=== PATIENT | male | born 1995 | race Caucasian/White ===

== ENCOUNTER 2024-04-21 17:38 | Emergency (ER) | payer OTHER, SELFPAY ==
[2024-04-21 17:43] VITALS: BP 141/104
--- NOTE | 2024-04-21 18:33 | ED.GENMED ---
History of Present Illness
General
Chief Complaint: Abdominal Pain
Source: patient
Exam Limitations: none
Time Seen by Provider: 04/21/24 18:14
History of Present Illness
History of Present Illness:
This is a 28 year old male that comes in with c/o left sided abd pain. States that this started on Thursday and has continued to get worse. States that this comes in waves. States that last night the pain was so bad that he was unable to sleep.
States that it seems to get worse after eating. Patient went to and was sent to the ER. States that the pain sometimes shoots up into his shoulder. States that it is a stabbing pain with deep breathing. States that he also had 3 stools today
which was unusual for him. States that he is occasionally nauseated. Denies any fever, chills, chest pain, SOB, vomiting, diarrhea, headache, dizziness, urinary burning.
Past History
Past History
ED Past Medical History: Psychiatric (Bipolar) and Other (Renal calculus)
ED Past Surgical History: None
Social History
Tobacco: Vaping
Alcohol: Occasional
Personal:
Living: with family
Review of Systems
Review of Systems
All Other Systems: ROS reviewed and negative except as documented in HPI and ROS
Constitutional: Reports no symptoms; Denies fever or chills
EENT: Reports no symptoms
Respiratory: Reports no symptoms; Denies cough or trouble breathing
Cardiac: Reports no symptoms; Denies chest pain
ABD/GI: Reports abdominal pain and nausea (occasional); Denies vomiting or diarrhea
: Reports no symptoms; Denies dysuria, frequency or urgency
Musculoskeletal: Reports no symptoms
Skin: Reports no symptoms
Neurological: Reports no symptoms; Denies dizzy or headache
Psychiatric: Reports no symptoms
Phy Exam
General Physical Exam
General Presentation: well appearing and no apparent distress
General age: appears stated age
General Skin: warm and dry
General Habitus: normal
General Mental: alert
General Hydration: dry mucous membranes
ENT Exam
ENT Exam: TM's normal, pharynx normal and neck supple
Eye Exam
Eye Exam: EOMI
Cardiovascular Exam
Cardiovascular Exam: regular rate/rhythm, no edema, no murmur and normal peripheral pulses
Pulmonary Exam
Pulmonary Exam: lungs clear, no respiratory distress, no rales, chest non tender, no crackles, no rhonchi, no wheezing and no cough
Gastrointestinal Exam
Gastrointestinal Exam: normal bowel sounds, soft, no organomegaly, no pulsatile mass, non distended and tender (Left sided abd tenderness with palpation)
Musculoskeletal Exam
Musculoskeletal Exam: full ROM and no edema
Skin Exam
Skin Exam: normal color, warm/dry, no rash and no petechia
Psychiatric Exam
Psychiatric Exam: normal mood/affect
Course
Orders/Labs/Results
Orders:
Orders
04/21/24 18:32
CT Abd/Pel (IV only)-DH only Urgent
Comment:
Reason For Exam: left sided abd pain
IV Insert/Care/Rem.- Treatment PRN
0.9% Sodium Chloride 1000 ml [Nss] 1,000 ml IV BOLUS
04/21/24 18:33
Ketorolac [Toradol] 30 mg IV NOW STA
04/21/24 18:55
Complete Blood Count/With Diff Urgent
Comprehensive Metabolic Panel Urgent
Lipase Urgent
Urinalysis Reflex To Culture Urgent
Date Specimen was Collected: 04/21/24
Time Specimen was Collected: 18:46
Abnormal Lab Results
04/21/24
18:55
ALT 66 H U/L
(0-50)
04/21/24 18:55
04/21/24 18:55
Vital Signs
Initial and Last Documented VS:
Initial Vital Signs
Temp Pulse Resp BP Pulse Ox
99.0 F 100 16 141/104 96
08/15/24 17:43 04/21/24 17:43 04/21/24 17:43 04/21/24 17:43 04/21/24 17:43
Last Documented Vital Signs
Temp Pulse Resp BP Pulse Ox
99.0 F 90 16 136/91 98
04/21/24 17:43 04/21/24 20:30 04/21/24 20:30 04/21/24 20:30 04/21/24 20:32
MDM/Problems Addressed
Differential Diagnosis Includes:
Renal calculus, Diverticulitis.
MDM/Problems Addressed:
This is a 28 year old male that comes in with c/o left sided abd pain. States that this started on Thursday and has continued to get worse.
Will check labs. CT scan. IV fluids and pain medication.
back into see patient. Patient is up and dressed. Explained to patient that his Blood work shows that his ALT is slightly elevated, otherwise his labs are normal. Lipase is normal and urine negative for infection. Explained that there is some bony
degenerative changes. This may be causing his abd discomfort. Will have patient follow up with the family doctor. Return with any concerns.
Chronic conditions affecting care:
NA
Acute Exacerbation and/or Progression of Chronic Illness:
NA
*Radiology
Radiology exam reviewed: radiology read reviewed (CT No evidence for acute abnormality of the abdomen or pelvis. Bony degenerative changes. )
*Pulse Oximetry
Patient hypoxic: no
*EKG
Interpreted by ED Provider?: NA
Rate: EKG- N/A
*Door Closer Mechanic Interpretation
Rate: Door Closer Mechanic- N/A
*Critical Care Note
Total Time (30-74mins, 75-104mins- exclusive of procedures): Not Applicable
ED Attending Note
-
Portions of this chart may have been created with voice recognition software.� Occasional wrong word or��sound alike� substitutions may have occurred due to the inherent limitations of voice recognition software.
Discharge Plan
Departure
Patient Disposition: Home (Routine Discharge)
Date of Disposition: 04/21/24
Time of Disposition: 22:54
Patient with high blood pressure during this ER visit?: Yes
Condition: Good
Covid-19: Not Applicable
Discharge Problem:
Left sided abdominal pain
Instructions: Abdominal Pain, BLOOD PRESSURE
Referrals:
Maryam Lomeli EPIC MANAGER [Family Provider] - Call in 1-3 days for appt
Activity Restrictions/Additional Instructions:
As discussed, your blood work shows that your ALT is slightly elevated, otherwise labs are normal. Your urine was negative for infection of blood. You CT is negative for acute disease but there are degenerative bony changes. The nerves form the back
wrap around to the abdomen and this may be causing your pain. You may use Tylenol or Ibuprofen for pain. Follow up with the family doctor. Please increase your water intake to 8-8oz glasses daily. IF YOU HAVE INCREASED OR CHANGING PAIN, OR YOU
HAVE ANY OTHER CONCERNS PLEASE RETURN TO THE EMERGENCY ROOM.
Interventions
Interventions:
*General Assessment Last Done: 04/21/24 20:17
*Neglect/Abuse Screening Last Done: 04/21/24 20:17
ED- Fall Risk Assessment Last Done: 04/21/24 20:17
*ED COVID-19 Vaccine History Last Done: 04/21/24 20:17
TK-Fywbss-Nvwpdsewnj Assessment Last Done: 04/21/24 20:17
Discharge Date and Time
Print Language: IVORIAN
[2024-04-21 18:47] VITALS: BMI 39.6
[2024-04-21] MEDS: NSS 1000 IV (18:58)
[2024-04-21] MEDS: TORADOL 30 MG IV (18:59)
[2024-04-21 19:01] LABS: Urine Albumin Negative (Neg - Trace); Urine Bilirubin Negative (Negative); Urine Character Clear (Clear); Urine Color Yellow; Urine Glucose Negative (Negative); Urine Ketone Negative (Negative); Urine Leukocyte Negative (Negative); Urine Nitrite Negative (Negative); Urine Occult Blood Negative (Negative); Urine Specific Gravity 1.025 (<1.030); Urine Urobilinogen Negative (Neg - 1+)
[2024-04-21 19:05] LABS: % Basophils 0.7 % (0-2); % Eosinophils 1.5 % (0-6); % Immature Granulocytes 0.4 % (0-0.5); % Monocytes 6.2 % (1.7-9.3); % Neutrophils 63.2 % (42.2-75.2); Absolute Basophils 0.1 10^3/uL (0-0.2); Absolute Eosinophils 0.1 10^3/uL (0-0.7); Absolute Lymphocytes 2.4 10^3/uL (1.2-3.4); Absolute Monocytes 0.5 10^3/uL (0.1-0.6); Absolute Neutrophils 5.3 10^3/uL (1.4-6.5); Hematocrit 43.5 % (39.0-52.0); Hemoglobin 15.2 g/dL (13.0-18.0); Mean Corp Hgb Conc. 34.9 g/dL (33.0-37.0); Mean Corpuscular Hgb 29.6 pg (27.0-31.0); Mean Corpuscular Volume 84.8 fL (80.0-94.0); Mean Platelet Volume 9.7 fL (7.4-10.4); Nucleated Red Blood Cells % 0 % (-); Platelet Count 221 10^3/uL (130-400); Red Blood Cell Count 5.13 10^6/uL (4.70-6.10); Red Cell Dist. Width 13.2 % (11.5-14.5); White Blood Cell Count 8.4 10^3/uL (4.8-10.8)
[2024-04-21 19:17] LABS: ALT (SGPT) 66 U/L (0-50); AST (SGOT) 32 U/L (17-59); Albumin 4.6 g/dl (3.5-5.0); Alkaline Phosphatase 69 U/L (38-126); Blood Urea Nitrogen 10 mg/dl (9-20); Calcium 9.4 mg/dl (8.4-10.2); Carbon Dioxide 25 mmol/L (22-30); Chloride 104 mmol/L (98-107); Estimated Creatinine Clearance > 125 ml/min; Glucose 97 mg/dl (70-99); Lipase 53 U/L (23-300); Sodium 139 mmol/L (135-145); Total Bilirubin 0.3 mg/dl (0.2-1.3); Total Protein 6.8 g/dl (6.3-8.2); eGFR > 60.00
[2024-04-21 20:30] VITALS: BP 136/91
== END 2024-04-21 23:12 | disposition home or self-care (01) ==
LOC: EMR 17:38
PROVIDERS: Clinical Nurse Specialist Family Health; EMERGENCY PHYSICIAN Emergency Medicine; FAMILY PHYSICIAN Internal Medicine
DX: R10.9 Unspecified abdominal pain (principal); M25.519 Pain in unspecified shoulder; R11.0 Nausea; R03.0 Elevated blood-pressure reading, without diagnosis of hypertension; F31.9 Bipolar disorder, unspecified; F17.290 Nicotine dependence, other tobacco product, uncomplicated; Z87.442 Personal history of urinary calculi
CPT/HCPCS: 99285; 96361; 96374; 74177; 80053; 81003; 83690; 85025; Q9967